=== PATIENT | male | born 1960 | race Caucasian/White ===

== ENCOUNTER 2025-03-28 07:46 | Outpatient (CLI) | payer OTHER, SELFPAY ==
--- NOTE | 2025-03-28 08:00 | CRLHL7_ITS ---
For Patients: As a result of the Century Cures Act, medical imaging exams and procedure reports are released immediately into your electronic medical record. You may view this report before your referring provider. If you have questions, please contact your health care provider. Indication: Vesico intestinal FISTULA Technique: CT soft tissue pelvis performed with and without rectal contrast. Please note that all CT scans at this facility use dose modulation, iterative reconstruction, and/or weight-based dosing when appropriate to reduce radiation dose to as low as reasonably achievable. Comparison: 05/09/2022 Findings: On the noncontrast enhanced images, no stone or hyperdensity in the bladder noted. A faint prostate calcification is present. Catheter is located within the rectum. On the post rectal contrast images, there is excellent positive opacification of the rectum. Sigmoid diverticulosis is present. There is no extravasation of contrast. Specifically, no evidence of fistula to the bladder. No free air or air in the bladder. No bowel obstruction. No evidence of acute inflammation. Delayed images confirm no evidence of extravasation of colonic contrast to the bladder. Impression: No evidence of fistula. Please note that all CT scans at this facility use dose modulation, iterative reconstruction, and/or weight-based dosing when appropriate to reduce radiation dose to as low as reasonably achievable. Dictated by Elmer Garnett MD @ 03/28/2025 12:47:39 PM (Electronically Signed)
== END 2025-03-28 07:47 | disposition home or self-care (01) ==
LOC: CT 07:50
PROVIDERS: Visit Provider Urology
DX: N32.1 Vesicointestinal fistula (principal)
CPT/HCPCS: 72192; Q9963